=== PATIENT | female | born 1970 | race Caucasian/White ===

== ENCOUNTER 2023-06-26 12:09 | Emergency (ER) | payer MEDICAID ==
[~2023-06-26] VITALS: Ht 160 cm; Wt 84.0 kg
[2023-06-26 12:17] VITALS: O2SAT 98
[2023-06-26 12:36] LABS: BASOPHILS % 0.3 % (0.0-2.0); EOSINOPHILS % 4.3 % (0.0-5.0); HEMATOCRIT. 40.2 % (36.0-48.0); HEMOGLOBIN. 13.8 g/dL (12.0-16.0); LYMPHOCYTES % 22.1 % (20.0-50.0); MEAN CORPUSCULAR HGB CONC 34.3 g/dL (31.0-37.0); MEAN CORPUSCULAR VOLUME 87.6 fL (81.0-99.0); MEAN PLATELET VOLUME 9.1 fl (7.4-10.4); MONOCYTES % 3.9 % (2.0-8.0); NEUTROPHILS % 69.4 % (40.0-76.0); PLATELET 179 x1000/uL (130-400); RED BLOOD CELL COUNT 4.58 mill/uL (4.2-5.4); RED CELL DISTRIBUTION WIDTH 14.7 % (11.6-14.6); WHITE BLOOD COUNT 5.2 x1000/uL (4.5-11.0)
[2023-06-26 12:53] LABS: ALANINE AMINOTRANSFERASE 20 IU/L (10-49); ALBUMIN 4.2 g/dL (3.2-4.8); ASPARTATE AMINOTRANSFERASE 28 IU/L (<34); BILIRUBIN TOTAL 0.8 mg/dL (0.1-1.0); CALCIUM 8.7 mg/dL (8.7-10.4); CARBON DIOXIDE 24 mEq/L (21-32); CHLORIDE 107 mEq/L (98-107); CREATININE 0.7 mg/dL (0.6-1.0); GLUCOSE 168 mg/dL (70-105); POTASSIUM 3.9 mEq/L (3.5-5.1); SODIUM 139 mEq/L (136-145); UREA NITROGEN BLOOD 14 mg/dL (9-23)
[2023-06-26] MEDS: MAGNESIUM/ALUMINUM HYDROXIDE/SIMETHICONE 30ML UDC PO STA (14:58)
[2023-06-26] MEDS: ONDANSETRON HCL 4MG TABLET PO ONE (14:58)
[2023-06-26] MEDS: VISCOUS LIDOCAINE 2% 15 ML UDC PO NR (14:58)
[2023-06-26] MEDS: FAMOTIDINE 20MG TABLET PO ONE (14:58)
[2023-06-26 15:00] LABS: HCG SCREEN NEGATIVE
[2023-06-26 15:18] LABS: CLARITY URINE CLOUDY (CLEAR); COLOR URINE DARK YELLOW (YELLOW); GLUCOSE URINE NEGATIVE (NEGATIVE); KETONES URINE TRACE (NEGATIVE); LEUKOCYTE ESTERASE URINE 2+ (NEGATIVE); NITRITE URINE NEGATIVE (NEGATIVE); OCCULT BLOOD URINE TRACE (NEGATIVE); PH URINE 5.5 (4.5-8.0); PROTEIN URINE 1+ (NEGATIVE); SPECIFIC GRAVITY URINE 1.025 (1.005-1.030)
[2023-06-26 15:18] LABS: TROPONIN I HIGH SENSITIVITY < 4 ng/L (3.0-34)
[2023-06-26 15:28] LABS: MUCUS URINE 3+ /lpf (< = 2+); SQUAMOUS EPITHELIAL CELL URINE 1+ /lpf (RARE/1+)
[2023-06-26 15:29] LABS: BACTERIA URINE 1+
[2023-06-26 15:30] LABS: WBC URINE 50-100 /hpf (0-2)
[2023-06-26 15:31] LABS: RBC URINE 0-2 /hpf (0-2)
[2023-06-26 16:29] VITALS: TEMP 97.8
[2023-06-26] MEDS ORDERED: MAG-55 MT (16:52)
[2023-06-26] MEDS ORDERED: FAMO-135 MT (16:52)
[2023-06-26] MEDS ORDERED: NITR-87 MT (16:52)
[2023-06-26 18:06] VITALS: BP 131/63; PULSE 68; RESP 17
== END 2023-06-26 18:09 | disposition home or self-care (01) ==
LOC: ER 12:09
DX: N39.0 Urinary tract infection, site not specified (principal)
CPT/HCPCS: 99284; 80053; 81003; 84703; 83690; 85025; 87086; 84484; 36415; 93005; Q0162